=== PATIENT | female | born 1945 | race Asian ===

== ENCOUNTER 2018-04-27 08:25 | Inpatient (IN) | payer MEDICARE, OTHER ==
[2018-04-27] VITALS (11 sets, daily range): BP systolic 101–152; BP diastolic 47–77
[~2018-04-27] VITALS: Ht 157.5 cm; Wt 59.9 kg
[~2018-04-27 08:25] MED LIST: ceFAZolin sod 1 GM in NS 55 ML IVPB ONE
[2018-04-27] MEDS ORDERED: Propofol 200mg/20ml IV ONE ×2 (10:00→10:44)
[2018-04-27 10:24] LABS: BASOPHILS % (AUTO) 0.5 % (0.0-2.0); EOSINOPHILS % (AUTO) 0.1 % (0.0-3.0); HEMATOCRIT 41.1 % (37.0-47.0); HEMOGLOBIN 13.6 G/DL (12.0-16.0); LYMPHOCYTES % (AUTO) 16.9 % (20.0-45.0); MEAN CORPUSCULAR VOLUME 90 FL (80-99); MONOCYTES % (AUTO) 3.2 % (1.0-10.0); NEUTROPHILS % (AUTO) 79.2 % (45.0-75.0); PLATELET COUNT 237 K/UL (150-450); RED BLOOD COUNT 4.54 M/UL (4.20-5.40); RED CELL DISTRIBUTION WIDTH 12.4 % (11.6-14.8); WHITE BLOOD COUNT 9.2 K/UL (4.8-10.8)
[2018-04-27] MEDS ORDERED: Bupivacaine 0.5% Inj 30 ml vial INJ ONE (10:26)
[2018-04-27] MEDS ORDERED: Lidocaine 1% Plain 30 ml INJ ONE (10:26)
[2018-04-27] MEDS ORDERED: Bacitracin 50000 Units Vial ONE ×2 (10:26→12:04)
--- NOTE | 2018-04-27 10:28 | Anethesia Preoperative Eval ---
Anesthesia Pre-op PMH/ROS General Date of Evaluation: Apr 27, 2018 Anesthesiologist: Reginaldo ASA Score: ASA 3 Mallampati Score Class I : Soft palate, uvula, fauces, pillars visible Class II: Soft palate, uvula, fauces visible Class III: Soft palate, base of uvula visible Class IV: Only hard plate visible Mallampati Classification: Class IV Surgeon: Delon Diagnosis: R lower lobe cancer Surgical Procedure: R VATS Anesthesia History: none Family History: no anesthesia problems Allergies: Coded Allergies: No Known Allergies (Unverified , 04/25/18) Medications: see eMAR Past Medical History Cardiovascular: Reports: HTN, other - HLD; Denies: CAD, AR, valve dz, arrhythmia Pulmonary: Denies: asthma, COPD, TABITHA, other Gastrointestinal/Genitourinary: Denies: GERD, CRI, ESRD, other Neurologic/Psychiatric: Denies: dementia, CVA, depression/anxiety, TIA, other Endocrine: Reports: DM, hypothyroidism; Denies: steroids, other HEENT: Denies: cataract (L), cataract (R), glaucoma, [place] (L), [place] (R), other Hematology/Immune: Denies: anemia, DVT, bleeding disorder, other Musculoskeletal/Integumentary: Denies: OA, RA, DJD, DDD, edema, other PSxH Narrative: Denies Anesthesia Pre-op Phys. Exam Physician Exam Last Vital Signs Date Time Temp Pulse Resp B/P (MAP) Pulse Ox O2 Delivery O2 Flow Rate FiO2 04/27/18 10:25 98.5 97 18 146/76 (99) 97 98.5 Constitutional: NAD Cardiovascular: RRR Respiratory: CTA Airway Exam Mallampati Score: Class III MO: limited TMD: <2 FB ROM: limited Teeth: missing, intact, broken Anesthesia Pre-op A/P Labs Hematology Test 04/27/18 10:00 White Blood Count Pending Red Blood Count Pending Hemoglobin Pending Hematocrit Pending Mean Corpuscular Volume Pending Mean Corpuscular Hemoglobin Pending Mean Corpuscular Hemoglobin Concent Pending Red Cell Distribution Width Pending Platelet Count Pending Mean Platelet Volume Pending Neutrophils (%) (Auto) Pending Lymphocytes (%) (Auto) Pending Monocytes (%) (Auto) Pending Eosinophils (%) (Auto) Pending Basophils (%) (Auto) Pending Coagulation Test 04/27/18 10:00 Prothrombin Time Pending Prothromb Time International Ratio Pending Activated Partial Thromboplast Time Pending Chemistry Test 04/27/18 10:00 Sodium Level Pending Potassium Level Pending Chloride Level Pending Carbon Dioxide Level Pending Blood Urea Nitrogen Pending Creatinine Pending Estimat Glomerular Filtration Rate Pending Glucose Level Pending Calcium Level Pending Studies Pre-op Studies: EKG - sr Risk Assessment & Plan Assessment: ASA III Plan: GA Status Change Before Surgery: MEJIA Jacobo M.D. Apr 27, 2018 10:28
[2018-04-27 10:29] LABS: INR 0.9 (0.9-1.1)
[2018-04-27 10:34] LABS: ANION GAP 8 mmol/L (5-15); BLOOD UREA NITROGEN 18 mg/dL (7-18); CALCIUM 9.6 MG/DL (8.5-10.1); CARBON DIOXIDE 27 MMOL/L (21-32); CHLORIDE 103 MMOL/L (98-107); CREATININE 0.9 MG/DL (0.55-1.30); POTASSIUM 4.1 MMOL/L (3.5-5.1); SODIUM 138 MMOL/L (136-145)
[2018-04-27] MEDS ORDERED: Sugammadex Sodium 200mg/2ml vial IV ONE (10:42)
[2018-04-27] MEDS ORDERED: Zemuron 50mg/5ml Inj IV ONE (10:42)
[2018-04-27] MEDS ORDERED: fentaNYL 100 mcg/2 mL IV ONE ×2 (10:44→13:08)
[2018-04-27] MEDS ORDERED: Midazolam 2mg/2ml Inj ONE (10:44)
[2018-04-27] MEDS ORDERED: Lidocaine 1% MPF 10mg/ml 5ml ONE (10:44)
[2018-04-27] MEDS ORDERED: AMLODIPINE BESYL5 MG ORAL (10:46)
[2018-04-27] MEDS ORDERED: LEVEMIR FL100 UNIT/2 SQ (10:46)
[2018-04-27] MEDS ORDERED: OMEPRAZOLE40 M1 ORAL (10:46)
[2018-04-27] MEDS ORDERED: ATORVASTATIN CA20 MG ORAL (10:46)
[2018-04-27] MEDS ORDERED: XANAX1 MG ORAL (10:46)
[2018-04-27] MEDS ORDERED: LOSARTAN POTASS25 MG ORAL (10:46)
[2018-04-27] MEDS ORDERED: LEVOTHYROXINE75 MCG ORAL (10:46)
[2018-04-27] MEDS ORDERED: LR 1000ml 1,000 ML IVLG SCH (10:51)
[2018-04-27] MEDS ORDERED: LORazepam Inj 2mg/ml 1ml IV PRN (11:00)
[2018-04-27] MEDS ORDERED: DiphenhydrAMINE 50mg/ml Inj IVP PRN (11:00)
[2018-04-27] MEDS ORDERED: Hydromorphone 0.5mg/0.5ml inj IVP PRN (11:00)
[2018-04-27] MEDS ORDERED: fentaNYL 100 mcg/2 mL IV PRN (11:00)
[2018-04-27] MEDS ORDERED: Labetalol 5mg/ml 20ml vial IV PRN (11:00)
--- NOTE | 2018-04-27 11:47 | Pre-Procedure Note/Attestation ---
Pre-Procedure Note/Attestation Complete Prior to Procedure Procedure Narrative: R VATS lower lobectomy Indications for Procedure Pre-Operative Diagnosis: Right lower lobe lung cancer Attestation I attest that I discussed the nature of the procedure; its benefits; risks and complications; and alternatives (and the risks and benefits of such alternatives ), prior to the procedure, with the patient (or the patient's legal labor service representative). I attest that, if there was a reasonable possibility of needing a blood transfusion, the patient (or the patient's legal labor service representative) was given the [facility] standardized written summary, pursuant to the Abner Anette Blood Safety Act ([place] Health and Safety Code # 1645, as amended). I attest that I re-evaluated the patient just prior to the surgery and that there has been no change in the patient's H&P, except as documented below: Mike Jernigan MD Apr 27, 2018 11:47
[2018-04-27] MEDS ORDERED: NS Irrig 1000ml ONE (12:00)
[2018-04-27] MEDS ORDERED: Sterile Water Irrig 1000ml IRRIG ONE (12:00)
[2018-04-27] MEDS ORDERED: LR 1000ml ONE (12:00)
[2018-04-27] MEDS ORDERED: Bupivacaine 0.25% Inj 30ml INJ ONE (12:04)
[2018-04-27] MEDS ORDERED: EPINEPHrine 1mg/1ml Amp ONE (12:04)
[2018-04-27] MEDS ORDERED: Lidocaine 1% 10mg/ml/Epi 0.005mg/ml 30ml vial INJ ONE (12:04)
--- NOTE | 2018-04-27 13:52 | Immediate Post-Op Evaluation ---
Immediate Post-Op Evalulation Immediate Post-Op Evalulation Procedure: Attempted VATS Date of Evaluation: Apr 27, 2018 Time of Evaluation: 13:55 IV Fluids: 900 Blood Products: 0 Estimated Blood Loss: 0 Urinary Output: 0 Blood Pressure Systolic: 139 Blood Pressure Diastolic: 79 Pulse Rate: 97 Respiratory Rate: 16 O2 Sat by Pulse Oximetry: 100 Temperature (Fahrenheit): 97.3 Pain Score (1-10): 0 Nausea: No Vomiting: No Complications Unable to insert double lumen tube due to patient anatomy, therefore procedure aborted. Patient stable. To go to ICU for airway monitoring Patient Status: awake, reacts, patent, none Hydration Status: adequate Drug: N/A as procedure cancelled MEJIA PAYTON M.D. Apr 27, 2018 13:52
[2018-04-27] MEDS ORDERED: Glycopyrrolate 0.2mg/ml 1ml Vial ONE (14:02)
[2018-04-27] MEDS ORDERED: Dexamethasone 4mg/ml vial ONE (14:02)
[2018-04-27] MEDS ORDERED: Phenylephrine 10mg/ml Vial ONE (14:02)
[2018-04-27] MEDS ORDERED: Esmolol 100mg/10ml Inj ONE (14:02)
[2018-04-27] MEDS ORDERED: Neostigmine 1mg/ml 10ml Inj ONE (14:02)
[2018-04-27 16:19] LABS: HEMATOCRIT 37.5 % (37.0-47.0); HEMOGLOBIN 12.4 G/DL (12.0-16.0); MEAN CORPUSCULAR VOLUME 92 FL (80-99); PLATELET COUNT 208 K/UL (150-450); RED BLOOD COUNT 4.07 M/UL (4.20-5.40); RED CELL DISTRIBUTION WIDTH 12.8 % (11.6-14.8)
[2018-04-27 16:29] LABS: ANION GAP 7 mmol/L (5-15); BLOOD UREA NITROGEN 15 mg/dL (7-18); CALCIUM 8.7 MG/DL (8.5-10.1); CARBON DIOXIDE 28 MMOL/L (21-32); CHLORIDE 103 MMOL/L (98-107); CREATININE 0.7 MG/DL (0.55-1.30); POTASSIUM 4.5 MMOL/L (3.5-5.1); SODIUM 137 MMOL/L (136-145)
[2018-04-27] MEDS ORDERED: Dexamethasone 20mg/5ml IVP SCH (17:00)
[2018-04-27] MEDS: D5 1/2NS w/KCl 20mEq 1,000 ML IV SCH (18:02)
[2018-04-27] MEDS: NovoLOG Insulin Flexpen SUBQ SCH ×2 (18:05→21:02)
--- NOTE | 2018-04-27 19:17 | Pre-op HX & Phy Repo 2 SIG ---
DATE OF ADMISSION: 04/27/2018 ADMITTING PHYSICIAN: TELLES M.D. HISTORY OF PRESENT ILLNESS: The patient is a 73-year-old, female, who presented to [facility] with a biopsy-proven right lower lobe coe-abwkz-roet lung cancer. For a surgical intervention. She denies any clinical history. PAST MEDICAL HISTORY: Notable for, 1. Hypertension. 2. Diabetes. 3. Hypothyroidism. 4. Hyperlipidemia. PAST SURGICAL HISTORY: None. MEDICATIONS: Levemir, omeprazole, losartan, atorvastatin, amlodipine, and levothyroxine. ALLERGIES: The patient has no known drug allergies. FAMILY HISTORY: The patient's both parents from old age. She is and lives with her in [place], [place]. She is a retired entry level staff accountant. SOCIAL HISTORY: The patient denies any alcohol, tobacco, or illicit drug use. PHYSICAL EXAMINATION: VITAL SIGNS: She is noted to be afebrile. Her vitals are within normal limits. CARDIAC: Regular rate and rhythm. No gallops. No murmur. RESPIRATORY: Clear to auscultation bilaterally. ABDOMEN: Soft, nondistended, and nontender with normoactive bowel sounds. EXTREMITIES: No evidence of cyanosis, clubbing, or edema. LABORATORY AND DIAGNOSTIC DATA: Laboratory study performed on 04/27/2018 showed WBC of 9.2, hemoglobin 13.6, hematocrit of 41.1, and platelet count of 237. Her sodium is 138, potassium 4.1, chloride is 103, bicarbonate is 27, BUN is 18, creatinine 0.9, and glucose is 244. Her PT is 9.7, PTT is 27, INR 0.9. ASSESSMENT AND PLAN: This is a 73-year-old, female with a biopsy-proven right lower lobe small cell lung cancer, who presented for a right lower lobectomy with mediastinal lymph node dissection. The patient will be prepared for a surgical resection. All risks and benefits were explained to the patient and her family. Telles M.D. DR: JANNETTE JOB#: [id number] CC:
--- NOTE | 2018-04-27 20:47 | Operative Note - Dictated ---
DATE OF OPERATION: 04/27/2018 SURGEON: Mike Jernigan M.D., speciality in Thoracic Surgery. PREOPERATIVE DIAGNOSIS: Right lower lobe non-small cell lung cancer. POSTOPERATIVE DIAGNOSIS: Right lower lobe non-small cell lung cancer. ANESTHESIA: General anesthesia. INDICATION: The patient is a 73-year-old, female with a biopsy-proven right lower lobe lung cancer who presented to [facility] for surgical intervention. The risks and benefit of the proposed operation were explained to the patient in detail including, but not limited to bleeding, infection, air leak, blood transfusion, anesthetic complication and of less than 1%. In addition, alternative versus no treatment options were also discussed. The patient fully understands the rationale behind the proposed operation. All questions answered to her satisfaction. DESCRIPTION OF OPERATION: After obtaining an informed consent, the patient was then brought to the operative and placed in supine position and surgical time-out was performed. After the induction of general anesthesia, a double-lumen endotracheal tube intubation was attempted. However, the vocal cord was anterior and there was some difficulty in passing a 37 double-lumen endotracheal tube. As such, a 35 double-lumen endotracheal tube was attempted. After multiple attempts, the airway cannot be intubated. Due to the potential onset of the laryngeal swelling and edema, a decision was made to abort the operation. The patient was then transferred to the intensive care unit and 10 mg of Decadron was then administered intravenously. The incident was disclosed to the family and we will watch her closely in the Intensive Care Unit over the next 24 to 48 hours. Muse M.D. DR: AMINATA JOB#: [id number] CC: SONNY
[2018-04-27] MEDS ORDERED: Atorvastatin 20mg tab ORAL SCH (21:00)
[2018-04-28] VITALS (10 sets, daily range): BP systolic 110–139; BP diastolic 50–69
[2018-04-28] MEDS: NovoLOG Insulin Flexpen SUBQ SCH (06:01)
[2018-04-28] MEDS: D5 1/2NS w/KCl 20mEq 1,000 ML IV SCH (06:37)
[2018-04-28 07:03] LABS: HEMATOCRIT 41.5 % (37.0-47.0); HEMOGLOBIN 13.6 G/DL (12.0-16.0); MEAN CORPUSCULAR VOLUME 92 FL (80-99); PLATELET COUNT 248 K/UL (150-450); RED CELL DISTRIBUTION WIDTH 12.6 % (11.6-14.8); WHITE BLOOD COUNT 13.9 K/UL (4.8-10.8)
[2018-04-28 07:27] LABS: ALANINE AMINOTRANSFERASE 34 U/L (12-78); ALBUMIN 3.4 G/DL (3.4-5.0); ALBUMIN/GLOBULIN RATIO 0.7 (1.0-2.7); ALKALINE PHOSPHATASE 88 U/L (46-116); ANION GAP 10 mmol/L (5-15); ASPARTATE AMINO TRANSFERASE 22 U/L (15-37); BILIRUBIN,TOTAL 0.6 MG/DL (0.2-1.0); BLOOD UREA NITROGEN 14 mg/dL (7-18); CALCIUM 9.8 MG/DL (8.5-10.1); CARBON DIOXIDE 26 MMOL/L (21-32); CHLORIDE 101 MMOL/L (98-107); CREATININE 0.9 MG/DL (0.55-1.30); POTASSIUM 4.6 MMOL/L (3.5-5.1); SODIUM 137 MMOL/L (136-145)
--- NOTE | 2018-04-28 07:41 | 48 Hour Post Anesthesia Eval ---
Post Anesthesia Evaluation Procedure: Attempted VATS Date of Evaluation: Apr 28, 2018 Time of Evaluation: 06:40 Blood Pressure Systolic: 111 0: 65 Pulse Rate: 95 Respiratory Rate: 18 O2 Sat by Pulse Oximetry: 97 Airway: patent Nausea: No Vomiting: No Pain Intensity: 0 Hydration Status: adequate Cardiopulmonary Status: at baseline Mental Status/LOC: patient returned to baseline Post-Anesthesia Complications: None. Patient sleeping comfortably in bed on arrival. Son at bedside. Arousable and AAOX4. VSS. Complaint of mild throat pain, otherwise without complaint. Follow-up care needed: N/A - further care as per primary team Michelle Kimball MD Apr 28, 2018 07:41
[2018-04-28] MEDS ORDERED: Losartan 25mg tab ORAL SCH (09:00)
--- NOTE | 2018-04-29 03:16 | Discharge Summary ---
DATE OF ADMISSION: 04/27/2018 DATE OF DISCHARGE: 04/28/2018 ADMITTING PHYSICIAN: Mike Jernigan M.D. HISTORY: The patient is a 73-year-old female, who presented to [facility] for a biopsy-proven right lower lobe iot-xsssi-nkgq lung cancer for a right lower lobectomy and carmen dissection. She was taken to the operating room and multiple attempts at intubation were unsuccessful and the surgery was then aborted due to the potential onset of laryngeal swelling. She was observed in the intensive care unit overnight and found to have no respiratory distress. The patient was then subsequently transferred to [facility] for higher level of care. Muse M.D. DR: SOPHIA JOB#: [id number] CC:
--- NOTE | 2018-04-30 12:20 | Cardiology Report ---
APPROVED REPORT EKG Measurement Heart [id number] MA [id number] Normal sinus rhythm Right bundle branch block Abnormal ECG
== END 2018-04-28 09:20 | disposition short-term general hospital (02) | DRG 182 ==
LOC: SDSOVERFLO 09:30 → ICU 13:46
DX: C34.31 Malignant neoplasm of lower lobe, right bronchus or lung (principal); I10 Essential (primary) hypertension; E11.9 Type 2 diabetes mellitus without complications; E03.9 Hypothyroidism, unspecified; E78.5 Hyperlipidemia, unspecified; Z53.8 Procedure and treatment not carried out for other reasons
CPT/HCPCS: 36415; 71045; 80048; 80053; 82962; 85007; 85025; 85610; 85730; 86850; 86900; 86901; 86920; 87081; 93005; 93970; J1815; J2250; J2370; J2405; J2710